=== PATIENT | female | born 1950 | race Caucasian/White ===

== ENCOUNTER 2018-07-04 15:40 | Emergency (ER) | payer OTHER ==
[~2018-07-04] VITALS: Ht 162.6 cm; Wt 93.0 kg
[2018-07-04] MEDS ORDERED: NAPROXEN500 MG PO (16:08)
[2018-07-04] MEDS ORDERED: VASOTEC20 M1 PO (16:08)
[2018-07-04] MEDS ORDERED: ZOCOR40 MG PO (16:08)
[2018-07-04] MEDS ORDERED: ISORDIL10 MG PO (16:09)
[2018-07-04] MEDS ORDERED: PRILOSEC10 MG PO (16:09)
[2018-07-04] MEDS ORDERED: ASPIR 8181 MG PO (16:09)
[2018-07-04] MEDS ORDERED: METFORMIN HCL1000 MG PO (16:09)
[2018-07-05] MEDS ORDERED: MUCINEX DM ER1 EAC1 PO (07:19)
[2018-07-05] MEDS ORDERED: IPRAT-ALBUT 0.5-3 ML IH (07:19)
[2018-07-05] MEDS ORDERED: INTESTINEX680 M1 PO (07:19)
[2018-07-05] MEDS ORDERED: BACTRIM DS TAB1 EACH PO (07:19)
[2018-07-05] MEDS ORDERED: BUDESONIDE0.5 MG/2 M IH (07:19)
[2018-07-05] MEDS ORDERED: MEDROLPACK PO (07:19)
== END 2018-07-05 07:45 | disposition home or self-care (01) ==
LOC: ER 15:40
DX: L03.115 Cellulitis of right lower limb (principal); J45.998 Other asthma

== ENCOUNTER 2018-07-11 08:51 | Emergency (ER) | payer OTHER ==
[~2018-07-11] VITALS: Ht 162.6 cm; Wt 92.5 kg
[~2018-07-11 08:51] MED LIST: ASPIR 8181 MG PO; BACTRIM DS TAB1 EACH PO; BUDESONIDE0.5 MG/2 M IH; INTESTINEX680 M1 PO; IPRAT-ALBUT 0.5-3 ML IH; ISORDIL10 MG PO; MEDROLPACK PO; METFORMIN HCL1000 MG PO; MUCINEX DM ER1 EAC1 PO; NAPROXEN500 MG PO; PRILOSEC10 MG PO; VASOTEC20 M1 PO; ZOCOR40 MG PO
== END 2018-07-11 20:00 | disposition home or self-care (01) ==
LOC: ER 08:51
DX: K52.9 Noninfective gastroenteritis and colitis, unspecified (principal)

== ENCOUNTER 2020-04-25 12:53 | Outpatient (CLI) | payer OTHER | END 2020-04-25 13:06 | disposition home or self-care (01) | LOC: RAD 12:53 | PROVIDERS: ATTEND Physical Medicine & Rehabilitation | DX: M54.5 Low back pain (principal); I10 Essential (primary) hypertension; E11.69 Type 2 diabetes mellitus with other specified complication | CPT/HCPCS: 72148 ==